=== PATIENT | male | born 1995 | race Caucasian/White ===

== ENCOUNTER 2021-04-13 01:26 | Emergency (ER) | payer BC ==
[2021-04-13 01:38] VITALS: RESP 16
--- NOTE | 2021-04-13 02:07 | ED ---
Male Urogenital HPI - General Chief complaint: Urogenital Stated complaint: Male Time Seen by Provider: 04/13/21 01:41 Source: patient Mode of arrival: ambulatory Limitations: no limitations - Related Data Allergies Allergy/AdvReac Type Severity Reaction Status Date / Time No Known Allergies Allergy Verified 04/13/21 01:38 Review of Systems ROS Statement: Those systems with pertinent positive or pertinent negative responses have been documented in the HPI. ROS Other: All systems not noted in ROS Statement are negative. Past Medical History Past Medical History: No Reported History History of Any Multi-Drug Resistant Organisms: None Reported Past Surgical History: No Surgical Hx Reported Past Psychological History: Anxiety, Depression Smoking Status: Current every day smoker Past Alcohol Use History: Rare Past Drug Use History: None Reported General Exam Limitations: no limitations Course Vital Signs 04/13/21 01:35 Temperature 98.2 F Pulse Rate 86 Respiratory 16 Rate Blood Pressure 145/95 O2 Sat by Pulse 100 Oximetry Medical Decision Making - Lab Data Lab Results 04/13/21 Range/Units 02:01 Urine Color Light Yellow Urine Appearance Clear (Clear) Urine pH 6.0 (5.0-8.0) Ur Specific [place] 1.012 (1.001-1.035) Urine Protein Negative (Negative) Urine Glucose (UA) Negative (Negative) Urine Ketones Negative (Negative) Urine Blood Small H (Negative) Urine Nitrite Negative (Negative) Urine Bilirubin Negative (Negative) Urine Urobilinogen <2.0 (<2.0) mg/dL Ur Leukocyte Esterase Negative (Negative) Urine RBC 1 (0-5) /hpf Urine WBC 1 (0-5) /hpf Urine Mucus Rare H (None) /hpf Disposition Clinical Impression: Hydrocele Disposition: HOME SELF-CARE Condition: Good Instructions (If sedation given, give patient instructions): Hydrocele (ED), Testicle Pain (ED) Is patient prescribed a controlled substance at d/c from ED?: No Referrals: Bill Ocasio MD [Primary Care Provider] - 1-2 days
[2021-04-13 02:11] LABS: Appearance,Urine Clear (Clear); Bilirubin,Urine Negative (Negative); Blood,Urine Small (Negative); Color,Urine Light Yellow; Glucose,Urine (UA) Negative (Negative); Ketones,Urine Negative (Negative); Leukocyte Esterase,Urine Negative (Negative); Mucus,Urine Rare /hpf; Nitrite,Urine Negative (Negative); Protein,Urine Negative (Negative); RBC,Urine 1 /hpf (0-5); Specific Gravity,Urine 1.012 (1.001-1.035); Urobilinogen,Urine <2.0 mg/dL (<2.0); WBC,Urine 1 /hpf (0-5)
--- NOTE | 2021-04-13 03:37 | US ---
EXAMINATION TYPE: US scrotum with doppler. Grayscale and color Doppler Duplex imaging performed of joseph hall scrotum. DATE OF EXAM: 04/13/2021 COMPARISON: NONE CLINICAL HISTORY: pain. Left scrotal pain today after manipulating scrotal sac; history of right palp able x years EXAM MEASUREMENTS: TESTICLES: appear wnl bilaterally Right Testicle: 4.7 x 3.5 x 2.7 cm Left Testicle: 3.5 2.4x 3.5 x cm EPIDIDYMIS HEAD: Right Epididymis: 1.0 x1.6 x 1.2 cm Left Epididymis: 0.7 x 0.8 x 1.0 cm Right epididymal head cysts x 2 noted with larger cyst = 1.0x 1.1 x 0.8cm; Two epididymal head cysts seen with larger = 0.3 x 0.4 x 0.4cm Doppler was performed to assess for testicular vascularity; good bilateral color flow and waveforms a re seen. There is no evidence of testicular torsion. Presence of hydroceles: small amount of fluid noted within right scrotal sac = 2.0 x 1.2 x 0.3cm. Presence of varicoceles: no IMPRESSION: No testicular torsion or mass. Right side epididymal cysts. Small right-sided hydrocele.
[2021-04-13 04:11] VITALS: BP 136/82; PULSE 78; TEMP 98
== END 2021-04-13 04:07 | disposition home or self-care (01) ==
LOC: EC 01:26
DX: N43.3 Hydrocele, unspecified (principal); F32.9 Major depressive disorder, single episode, unspecified; F41.9 Anxiety disorder, unspecified; F17.200 Nicotine dependence, unspecified, uncomplicated
CPT/HCPCS: 76870; 81001; 87491; 87591; 93975; 99284

== ENCOUNTER 2022-09-03 22:46 | Emergency (ER) | payer OTHER ==
[2022-09-03 22:52] VITALS: RESP 16; TEMP 97.4
--- NOTE | 2022-09-03 22:54 | ED ---
Lower Extremity Injury HPI - General Chief Complaint: Extremity Injury, Lower Stated Complaint: Right Leg Pain, possible DVT Source: patient, RN notes reviewed, old records reviewed Mode of arrival: ambulatory Limitations: no limitations - History of Present Illness Initial Comments: This is a 27 show male to the emergency department for evaluation. Patient presenting for lower extremity swelling and pain. Severe. Patient became concerned that he may have a DVT no history of DVT. No travel history no trauma. No recent surgeries. Patient has taken testosterone in the past MD Complaint: leg injury, ankle injury -: minutes(s) Injury: Knee: Right, Ankle: Right Type of Injury: unknown Place: home Severity: moderate Severity scale (1-10): 4 Improves With: nothing Context: other (0) Other Symptoms: other (0) Associated Symptoms: ambulatory Treatments Prior to Arrival: other (0) - Related Data Allergies Allergy/AdvReac Type Severity Reaction Status Date / Time No Known Allergies Allergy Verified 09/03/22 22:48 Review of Systems ROS Statement: Those systems with pertinent positive or pertinent negative responses have been documented in the HPI. ROS Other: All systems not noted in ROS Statement are negative. Past Medical History Past Medical History: No Reported History History of Any Multi-Drug Resistant Organisms: None Reported Past Surgical History: No Surgical Hx Reported Past Psychological History: Anxiety, Depression Smoking Status: Current every day smoker, Former smoker Past Alcohol Use History: None Reported Past Drug Use History: None Reported General Exam Limitations: no limitations General appearance: alert, in no apparent distress Head exam: Present: atraumatic, normocephalic, normal inspection Eye exam: Present: normal appearance, PERRL, EOMI. Absent: scleral icterus, conjunctival injection, periorbital swelling ENT exam: Present: normal exam, mucous membranes moist Neck exam: Present: normal inspection. Absent: tenderness, meningismus, lymphadenopathy Respiratory exam: Present: normal lung sounds bilaterally. Absent: respiratory distress, wheezes, rales, rhonchi, stridor Cardiovascular Exam: Present: regular rate, normal rhythm, normal heart sounds. Absent: systolic murmur, diastolic murmur, rubs, gallop, clicks GI/Abdominal exam: Present: soft, normal bowel sounds. Absent: distended, tenderness, guarding, rebound, rigid Extremities exam: Present: normal inspection, full ROM, normal capillary refill. Absent: tenderness, pedal edema, joint swelling, calf tenderness Back exam: Present: normal inspection Neurological exam: Present: alert, oriented X3, CN II-XII intact Psychiatric exam: Present: normal affect, normal mood Skin exam: Present: warm, dry, intact, normal color. Absent: rash Course Vital Signs 09/03/22 09/04/22 22:48 01:04 Temperature 97.4 F L Pulse Rate 96 93 Respiratory 16 16 Rate Blood Pressure 143/92 141/86 O2 Sat by Pulse 98 98 Oximetry - Reevaluation(s) Reevaluation #1: 09/03/22 Medical records reviewed Patient symptoms improved here in the ER Patient informed of results and questions answered Medical Decision Making - Medical Decision Making 27 male presented today for evaluation of possible DVT lower extremity. Imaging is negative patient can be discharged home Disposition Clinical Impression: Right leg pain Disposition: HOME SELF-CARE Condition: Good Instructions (If sedation given, give patient instructions): Leg Pain (ED) Is patient prescribed a controlled substance at d/c from ED?: No Referrals: Bill Ocasio MD [Primary Care Provider] - 1-2 days Time of Disposition: 01:00
--- NOTE | 2022-09-04 00:43 | US ---
EXAMINATION TYPE: US venous doppler duplex LE RT DATE OF EXAM: 09/03/2022 11:50 PM COMPARISON: NONE CLINICAL HISTORY: dvt. redness hot to touch SIDE PERFORMED: Right TECHNIQUE: The lower extremity deep venous system is examined utilizing real time linear array sonog kate with graded compression, doppler sonography and color-flow sonography. VESSELS IMAGED: Common Femoral Vein Deep Femoral Vein Greater Saphenous Vein * Femoral Vein Popliteal Vein Small Saphenous Vein * Proximal Calf Veins (* superficial vessels) Right Leg: Negative for DVT IMPRESSION: No evidence of deep vein thrombosis in the right leg.
[2022-09-04 01:05] VITALS: BP 141/86; PULSE 93
== END 2022-09-04 01:04 | disposition home or self-care (01) ==
LOC: EC 22:46
DX: M79.604 Pain in right leg (principal); F41.9 Anxiety disorder, unspecified; F32.A Depression, unspecified; F17.200 Nicotine dependence, unspecified, uncomplicated
CPT/HCPCS: 99283